=== PATIENT | male | born 1965 | race Caucasian/White ===

== ENCOUNTER 2024-07-27 09:48 | Inpatient (IN) | payer MEDICAID, OTHER ==
[~2024-07-27] VITALS: Ht 185.4 cm; Wt 95.0 kg
[2024-07-27 10:43] LABS: COVID AG,FIA SOURCE NASAL SWAB
[2024-07-27 10:46] LABS: BASOPHILS % (AUTO) 0.2 % (0.0-2.0); EOSINOPHILS % (AUTO) 0.4 % (1.0-6.0); HEMATOCRIT 33.5 % (41-53); LYMPHOCYTES # (AUTO) 0.5 K/uL (1.0-4.8); LYMPHOCYTES % (AUTO) 5.2 % (22.0-44.0); MEAN CORPUSCULAR HEMOGLOBIN 29.7 pg (26.0-34.0); MEAN CORPUSCULAR HGB CONC 32.9 G/dL (31.0-37.0); MEAN CORPUSCULAR VOLUME 90 fL (80-100); MONOCYTES # (AUTO) 0.7 K/uL (0.1-1.0); MONOCYTES % (AUTO) 6.7 % (2.0-9.0); NEUTROPHILS # (AUTO) 8.7 K/uL (1.8-7.7); PLATELET COUNT (AUTO) 104 K/uL (150-450); RED BLOOD CELL COUNT(AUTO) 3.72 MIL/uL (4.50-5.90); WHITE BLOOD COUNT (AUTO) 9.9 K/uL (4.5-11.0)
[2024-07-27 10:53] LABS: ANION GAP 24 mmol/L (8-16); CARBON DIOXIDE 14 mmol/L (22-29); CHLORIDE 96 mmol/L (98-107); CREATININE 19.86 mg/dL (0.60-1.30); GLOMERULAR FILTR. RATE CALC 2 mL/min (>60); GLUCOSE,RANDOM 106 mg/dL (70-110); SODIUM SERUM 134 mmol/L (136-145)
[2024-07-27 10:54] LABS: CALCIUM, TOTAL 9.2 mg/dL (8.8-10.5)
[2024-07-27 10:56] LABS: POTASSIUM 6.9 mmol/L (3.5-5.1)
[2024-07-27 10:58] LABS: NEUTROPHILS % (AUTO) 87.5 % (40.0-70.0)
[2024-07-27 11:02] LABS: INFLUENZA TYPE A NEGATIVE FOR TYPE A (NEGATIVE); INFLUENZA TYPE B NEGATIVE FOR TYPE B (NEGATIVE); SARS-COV2 (COVID) ANTIGEN,FIA Negative (Negative)
[2024-07-27 11:10] LABS: PROTHROMBIN TIME 11.5 SEC (9.4-11.6)
[2024-07-27 11:19] LABS: LACTIC ACID 1.7 mmol/L (0.4-2.0)
[2024-07-27 11:25] LABS: UREA NITROGEN, BLOOD 196 mg/dL (7-18)
[2024-07-27] MEDS: SODIUM ZIRCONIUM CYCLOSILICATE 10 GM POWDER PACKET PO ONE (11:26)
[2024-07-27] MEDS: DEXTROSE 50%-WATER 25 GM/50 ML SYRINGE IVP ONE (11:30)
[2024-07-27] MEDS: SODIUM CHLORIDE 0.9% 1,000 ML IV ONE (11:32)
[2024-07-27] MEDS: INSULIN REGULAR, HUMAN 100 UNITS/ML IVP ONE (11:32)
[2024-07-27 11:35] LABS: TROPONIN I-HIGH SENSITIVITY 288 ng/L (<76)
[2024-07-27] MEDS: CALCIUM CHLORIDE 100 MG/ML 10 ML SYRINGE IVP ONE ×2 (11:55→15:24)
[2024-07-27 12:06] LABS: GLUCOMETER DEV NAME(LOC) ER.7; GLUCOSE,POINT OF CARE 93 MG/DL (70-110)
[2024-07-27] MEDS ORDERED: AMIODARONE HCL 50 MG/ML 3 ML VIAL ONE (12:23)
[2024-07-27] MEDS ORDERED: PHENYLEPHRINE HCL IN 0.9% NACL 400 MCG/10 ML SYRINGE IVP ONE (12:37)
[2024-07-27 12:44] LABS: APPEARANCE,URINE HAZY (CLEAR); BILIRUBIN,URINE NEGATIVE (NEGATIVE); COLOR,URINE LIGHT YELLOW (YELLOW); GLUCOSE, URINE (UA) NEGATIVE (NEGATIVE); KETONES,URINE NEGATIVE (NEGATIVE); LEUKOCYTE ESTERASE ,URINE NEGATIVE (NEGATIVE); NITRATE,URINE NEGATIVE (NEGATIVE); OCCULT BLOOD,URINE MODERATE (NEGATIVE); PROTEIN,URINE 300-600,SEE CONFIRM mg/dL (NEGATIVE); SPECIFIC GRAVITIY, URINE 1.013 (1.003-1.030); UROBILINOGEN,URINE <=1.0 mg/dL (<=1.0)
[2024-07-27] MEDS ORDERED: NOREPINEPHRINE 8 MG/0.9 % NACL 250 ML IV PRN (12:45)
[2024-07-27] MEDS ORDERED: PHENYLEPHRINE 200 MG/D5%-WATER 250 ML IV PRN (12:45)
[2024-07-27] MEDS ORDERED: AMIODARONE HCL 360 MG in DEXTROSE 5%-WATER 242.8 ML IV ONE (12:45)
[2024-07-27] MEDS: SODIUM BICARBONATE [ADULT] 8.4% 50 MEQ/50 ML SYRINGE IVP ONE ×2 (12:59→15:06)
[2024-07-27] MEDS: AMIODARONE HCL 360 MG in DEXTROSE 5%-WATER 242.8 ML IV ONE (13:00)
[2024-07-27 13:05] LABS: BACTERIA,URINE Many /HPF (None Seen); SULFOSALICYLIC ACID,URINE 3+ (Negative)
[2024-07-27] MEDS: PHENYLEPHRINE 200 MG/D5%-WATER 250 ML IV PRN (13:06)
[2024-07-27 13:09] LABS: CALCIUM, TOTAL 11.4 mg/dL (8.8-10.5); CREATININE 19.35 mg/dL (0.60-1.30); MAGNESIUM 2.7 mg/dL (1.80-2.40)
[2024-07-27] MEDS ORDERED: MIDAZOLAM HCL 2 MG/2 ML VIAL ONE (13:12)
[2024-07-27 13:15] LABS: POTASSIUM 6.2 mmol/L (3.5-5.1)
[2024-07-27] MEDS: AMIODARONE HCL 150 MG in DEXTROSE 5%-WATER 97 ML IV ONE (13:15)
[2024-07-27] MEDS: LORazepam 2 MG/ML VIAL IVP ONE (15:05)
[2024-07-27] MEDS: SODIUM BICARBONATE 150 MEQ in DEXTROSE 5%-WATER 850 ML IV ONE (15:06)
[2024-07-27] MEDS: PIPERACILLIN/TAZO 3.375 GM/D5W 50 ML IV ONE (15:24)
[2024-07-27 15:54] LABS: TROPONIN I-HIGH SENSITIVITY 250 ng/L (<76)
[2024-07-27 16:30] VITALS: BP 134/82; PULSE 90; RESP 17; TEMP 98.1; O2SAT 96
[2024-07-27 16:45] VITALS: BP 120/89; PULSE 97; RESP 16; O2SAT 97
[2024-07-27] MEDS: CALCITONIN,SALMON,SYNTHETIC 200 UNITS/ML 2 ML VIAL SQ ONE (17:14)
[2024-07-27 17:15] VITALS: BP 98/46; PULSE 101; RESP 16; O2SAT 97
[2024-07-27 17:45] VITALS: BP 108/55; PULSE 100; RESP 16; O2SAT 97
[2024-07-27 18:15] VITALS: BP 103/56; PULSE 99; RESP 16; O2SAT 97
[2024-07-27 18:45] VITALS: BP 100/58; PULSE 98; RESP 17; O2SAT 96
[2024-07-27] MEDS ORDERED: AMIODARONE HCL 540 MG in DEXTROSE 5%-WATER 239.2 ML IV ONE (18:45)
[2024-07-27] MEDS: AMIODARONE HCL 540 MG in DEXTROSE 5%-WATER 239.2 ML IV ONE (19:19)
[2024-07-27] MEDS: ZOLPIDEM TARTRATE 5 MG TABLET PO ONE (23:41)
[2024-07-27] MEDS ORDERED: ROSU40TA88 PO (23:50)
[2024-07-27] MEDS ORDERED: AMLO5TAB66 PO (23:50)
[2024-07-27] MEDS ORDERED: ATOR40TA71 PO (23:50)
[2024-07-27] MEDS ORDERED: DEXA4 PO (23:50)
[2024-07-27] MEDS ORDERED: EZET10TA57 PO (23:50)
[2024-07-27] MEDS ORDERED: CHLO25TA3 PO (23:50)
[2024-07-27] MEDS ORDERED: [UNRECOGNIZED DRUG - CODE] SQ (23:50)
[2024-07-27] MEDS ORDERED: OMEP20TA20 PO (23:50)
[2024-07-27] MEDS ORDERED: ASPI-1444 PO (23:50)
[2024-07-27] MEDS ORDERED: CLOP75TA32 PO (23:50)
[2024-07-28] VITALS (9 sets, daily range): BP systolic 89–131; BP diastolic 41–77; PULSE 75–85; RESP 10–28; TEMP 98.4–99.1; O2SAT 95–97
[2024-07-28] MEDS: PHENYLEPHRINE 200 MG/D5%-WATER 250 ML IV PRN (02:14)
[2024-07-28] MEDS ORDERED: BISACODYL 10 MG RECTAL RECTAL SUPPOSITORY PR PRN (05:15)
[2024-07-28] MEDS ORDERED: ONDANSETRON HCL 4 MG/2 ML VIAL IVP PRN (05:15)
[2024-07-28] MEDS ORDERED: MAGNESIUM HYDROXIDE SUSPENSION 30 ML UDCUP PO PRN (05:15)
[2024-07-28] MEDS ORDERED: OxyCODONE HCL/ACETAMINOPHEN 5-325 MG TABLET PO PRN (05:15)
[2024-07-28] MEDS ORDERED: IPRATROPIUM BROMIDE 0.5 MG/2.5 ML NEB SOLUTION NEB PRN (05:15)
[2024-07-28] MEDS ORDERED: ALBUTEROL SULFATE 2.5 MG/0.5 ML NEB SOLUTION NEB PRN (05:15)
[2024-07-28] MEDS ORDERED: ACETAMINOPHEN 325 MG TABLET PO PRN (05:15)
[2024-07-28] MEDS ORDERED: MORPHINE SULFATE 2 MG/ML SYRINGE IVP PRN (05:15)
[2024-07-28 06:17] LABS: CALCIUM, TOTAL 8.7 mg/dL (8.8-10.5); CREATININE 13.37 mg/dL (0.60-1.30); MAGNESIUM 2.2 mg/dL (1.80-2.40); POTASSIUM 5.3 mmol/L (3.5-5.1)
[2024-07-28] MEDS: HEPARIN SODIUM,PORCINE 5,000 UNITS/ML VIAL SQ SCH (08:00)
[2024-07-28] MEDS: DOCUSATE SODIUM 100 MG/10 ML LIQUID UDCUP PO SCH (08:43)
[2024-07-28] MEDS: EZETIMIBE 10 MG TABLET PO SCH (08:43)
[2024-07-28] MEDS: PANTOPRAZOLE SODIUM 40 MG/VIAL IVP SCH (08:47)
[2024-07-28] MEDS: CLOPIDOGREL BISULFATE 75 MG TABLET PO SCH (08:47)
[2024-07-28] MEDS: ASPIRIN 81 MG DR TABLET PO SCH (08:48)
[2024-07-28] MEDS: DEXTROSE 5%-0.9% SODIUM CHL 1,000 ML IV SCH (08:52)
[2024-07-28] MEDS ORDERED: HEPARIN SODIUM,PORCINE 1,000 UNITS/ML VIAL IVP ONE ×2 (12:00→16:49)
[2024-07-28] MEDS ORDERED: AMIODARONE HCL 750 MG in DEXTROSE 5%-WATER 485 ML IV SCH (12:45)
[2024-07-28] MEDS: AMIODARONE HCL 750 MG in DEXTROSE 5%-WATER 485 ML IV SCH (13:08)
[2024-07-28] MEDS: HEPARIN SODIUM,PORCINE 1,000 UNITS/ML VIAL IVCATH ONE ×2 (14:19)
[2024-07-28] MEDS ORDERED: ALBUMIN HUMAN 25%-12.5GM/50ML IV BOTTLE IV ONE (16:49)
[2024-07-28] MEDS: ATORVASTATIN CALCIUM 40 MG TABLET PO SCH (21:26)
[2024-07-28] MEDS: ETHYL ALCOHOL 62% ANTISEPTIC NASAL SANITIZER 0.6 ML AMPUL NASAL SCH (23:39)
[2024-07-29] VITALS: BP 104/53; PULSE 80; RESP 16; TEMP 99; O2SAT 96
[2024-07-29 04:00] VITALS: BP 93/46; PULSE 77; RESP 16; TEMP 98.8; O2SAT 96
[2024-07-29 05:41] LABS: BASOPHILS % (AUTO) 0.1 % (0.0-2.0); EOSINOPHILS % (AUTO) 1.2 % (1.0-6.0); HEMATOCRIT 26.2 % (41-53); HEMOGLOBIN 8.8 g/dL (13.5-17.5); LYMPHOCYTES # (AUTO) 0.7 K/uL (1.0-4.8); LYMPHOCYTES % (AUTO) 6.5 % (22.0-44.0); MEAN CORPUSCULAR HEMOGLOBIN 30.2 pg (26.0-34.0); MEAN CORPUSCULAR HGB CONC 33.7 G/dL (31.0-37.0); MEAN CORPUSCULAR VOLUME 90 fL (80-100); MONOCYTES # (AUTO) 1.1 K/uL (0.1-1.0); NEUTROPHILS # (AUTO) 9.2 K/uL (1.8-7.7); NEUTROPHILS % (AUTO) 82.2 % (40.0-70.0); PLATELET COUNT (AUTO) 83 K/uL (150-450); RED BLOOD CELL COUNT(AUTO) 2.92 MIL/uL (4.50-5.90); RED CELL DISTRIBUTION WIDTH 14.8 % (11.5-14.5); WHITE BLOOD COUNT (AUTO) 11.2 K/uL (4.5-11.0)
[2024-07-29 06:00] LABS: CALCIUM, TOTAL 7.7 mg/dL (8.8-10.5); CREATININE 7.98 mg/dL (0.60-1.30); MAGNESIUM 2.1 mg/dL (1.80-2.40); PHOSPHORUS 6.2 mg/dL (2.5-4.9); POTASSIUM 4.1 mmol/L (3.5-5.1)
[2024-07-29 08:00] VITALS: BP 95/63; PULSE 78; PULSE 86; RESP 10; TEMP 98.3; O2SAT 99
[2024-07-29 12:00] VITALS: BP 82/60; PULSE 77; TEMP 98.6; O2SAT 97
[2024-07-29 16:00] VITALS: BP 109/59; PULSE 81; RESP 14; TEMP 98.4; O2SAT 96
[2024-07-29 17:25] LABS: CREATININE 8.27 mg/dL (0.60-1.30)
[2024-07-29 20:00] VITALS: BP 102/52; PULSE 81; RESP 16; TEMP 98.6; O2SAT 99
[2024-07-29] MEDS: PANTOPRAZOLE SODIUM 40 MG/VIAL IVP SCH (21:03)
[2024-07-30] VITALS (15 sets, daily range): BP systolic 90–104; BP diastolic 44–65; PULSE 78–94; RESP 12–19; TEMP 97.9–98.6; O2SAT 94–99
[2024-07-30 05:32] LABS: BASOPHILS % (AUTO) 0.2 % (0.0-2.0); EOSINOPHILS % (AUTO) 2.4 % (1.0-6.0); HEMATOCRIT 27.1 % (41-53); HEMOGLOBIN 8.9 g/dL (13.5-17.5); LYMPHOCYTES # (AUTO) 0.8 K/uL (1.0-4.8); LYMPHOCYTES % (AUTO) 5.8 % (22.0-44.0); MEAN CORPUSCULAR HEMOGLOBIN 29.8 pg (26.0-34.0); MEAN CORPUSCULAR HGB CONC 32.8 G/dL (31.0-37.0); MEAN CORPUSCULAR VOLUME 91 fL (80-100); MONOCYTES # (AUTO) 1.2 K/uL (0.1-1.0); NEUTROPHILS # (AUTO) 12.3 K/uL (1.8-7.7); NEUTROPHILS % (AUTO) 83.6 % (40.0-70.0); PLATELET COUNT (AUTO) 91 K/uL (150-450); RED BLOOD CELL COUNT(AUTO) 2.99 MIL/uL (4.50-5.90); RED CELL DISTRIBUTION WIDTH 14.5 % (11.5-14.5); WHITE BLOOD COUNT (AUTO) 14.7 K/uL (4.5-11.0)
[2024-07-30 05:48] LABS: ALBUMIN 2.1 g/dL (3.4-5.0); BILIRUBIN,TOTAL 0.9 mg/dL (0.1-1.0); CALCIUM, TOTAL 7.7 mg/dL (8.8-10.5); CREATININE 8.73 mg/dL (0.60-1.30); MAGNESIUM 1.9 mg/dL (1.80-2.40); PHOSPHORUS 6.2 mg/dL (2.5-4.9); POTASSIUM 3.6 mmol/L (3.5-5.1); TOTAL PROTEIN, SERUM 4.8 g/dL (6.4-8.2)
[2024-07-30 05:49] LABS: CHOL/HDL RATIO 1.9 (4.2-7.3)
[2024-07-30] MEDS ORDERED: HEPARIN SODIUM,PORCINE 1,000 UNITS/ML VIAL IVP ONE (11:38)
[2024-07-30] MEDS ORDERED: SODIUM CHLORIDE 0.9% 1,000 ML ONE ×2 (15:59)
[2024-07-30] MEDS: MIDODRINE HCL 5 MG TABLET PO SCH (16:02)
[2024-07-30] MEDS: ALBUMIN HUMAN 5%-12.5GM/250ML 250 ML IV ONE (16:02)
[2024-07-30] MEDS ORDERED: LOSA100T59 PO (19:47)
[2024-07-30] MEDS ORDERED: CYCL50CA3 PO (19:47)
[2024-07-30] MEDS: HEPARIN SODIUM,PORCINE 1,000 UNITS/ML VIAL IVCATH ONE ×2 (20:15)
[2024-07-30] MEDS: ZOLPIDEM TARTRATE 5 MG TABLET PO PRN (20:34)
[2024-07-31] VITALS (9 sets, daily range): BP systolic 92–107; BP diastolic 48–65; PULSE 84–103; RESP 14–19; TEMP 98.3–99; O2SAT 93–99
[2024-07-31 05:22] LABS: BASOPHILS % (AUTO) 0.2 % (0.0-2.0); EOSINOPHILS % (AUTO) 2.2 % (1.0-6.0); HEMATOCRIT 27.9 % (41-53); HEMOGLOBIN 9.1 g/dL (13.5-17.5); LYMPHOCYTES # (AUTO) 1.3 K/uL (1.0-4.8); LYMPHOCYTES % (AUTO) 8.3 % (22.0-44.0); MEAN CORPUSCULAR HEMOGLOBIN 29.6 pg (26.0-34.0); MEAN CORPUSCULAR HGB CONC 32.7 G/dL (31.0-37.0); MEAN CORPUSCULAR VOLUME 90 fL (80-100); MONOCYTES # (AUTO) 1.2 K/uL (0.1-1.0); MONOCYTES % (AUTO) 7.8 % (2.0-9.0); NEUTROPHILS # (AUTO) 12.3 K/uL (1.8-7.7); NEUTROPHILS % (AUTO) 81.5 % (40.0-70.0); PLATELET COUNT (AUTO) 130 K/uL (150-450); RED BLOOD CELL COUNT(AUTO) 3.09 MIL/uL (4.50-5.90); RED CELL DISTRIBUTION WIDTH 14.7 % (11.5-14.5); WHITE BLOOD COUNT (AUTO) 15.2 K/uL (4.5-11.0)
[2024-07-31 05:36] LABS: CREATININE 5.21 mg/dL (0.60-1.30); MAGNESIUM 1.8 mg/dL (1.80-2.40); PHOSPHORUS 4.7 mg/dL (2.5-4.9); POTASSIUM 3.3 mmol/L (3.5-5.1)
[2024-07-31] MEDS: MIDODRINE HCL 5 MG TABLET PO SCH (15:53)
[2024-08-01] VITALS (12 sets, daily range): BP systolic 97–126; BP diastolic 48–88; PULSE 55–95; RESP 17–19; TEMP 97.9–98.4; O2SAT 95–98
[2024-08-01 07:30] LABS: BASOPHILS % (AUTO) 0.6 % (0.0-2.0); EOSINOPHILS % (AUTO) 2.9 % (1.0-6.0); HEMOGLOBIN 8.5 g/dL (13.5-17.5); LYMPHOCYTES # (AUTO) 0.9 K/uL (1.0-4.8); LYMPHOCYTES % (AUTO) 7.5 % (22.0-44.0); MEAN CORPUSCULAR HEMOGLOBIN 29.6 pg (26.0-34.0); MEAN CORPUSCULAR HGB CONC 32.6 G/dL (31.0-37.0); MEAN CORPUSCULAR VOLUME 91 fL (80-100); MONOCYTES % (AUTO) 8.4 % (2.0-9.0); NEUTROPHILS # (AUTO) 9.3 K/uL (1.8-7.7); NEUTROPHILS % (AUTO) 80.6 % (40.0-70.0); PLATELET COUNT (AUTO) 151 K/uL (150-450); RED BLOOD CELL COUNT(AUTO) 2.86 MIL/uL (4.50-5.90); RED CELL DISTRIBUTION WIDTH 14.4 % (11.5-14.5); WHITE BLOOD COUNT (AUTO) 11.6 K/uL (4.5-11.0)
[2024-08-01 07:39] LABS: CALCIUM, TOTAL 8.2 mg/dL (8.8-10.5); CREATININE 6.05 mg/dL (0.60-1.30); POTASSIUM 3.1 mmol/L (3.5-5.1)
[2024-08-01 08:06] LABS: GLUCOMETER DEV NAME(LOC) 5N.2C; GLUCOSE,POINT OF CARE 177 MG/DL (70-110)
[2024-08-01] MEDS: POTASSIUM CHLORIDE 20 MEQ ER TABLET PO ONE ×2 (09:48→12:10)
[2024-08-01] MEDS: METOPROLOL SUCCINATE 25 MG ER TABLET PO SCH (12:12)
[2024-08-01] MEDS: POTASSIUM CHLORIDE 10 MEQ ER TABLET PO ONE (12:16)
[2024-08-01 17:14] LABS: POTASSIUM 3.7 mmol/L (3.5-5.1)
[2024-08-02] VITALS (21 sets, daily range): BP systolic 88–121; BP diastolic 41–81; PULSE 61–97; RESP 17–18; TEMP 97.5–98.5; O2SAT 97–98
[2024-08-02] MEDS: HEPARIN SODIUM,PORCINE 1,000 UNITS/ML VIAL IVCATH ONE ×2 (15:38)
[2024-08-03 00:35] VITALS: BP 100/55; PULSE 84; RESP 18; TEMP 98.3; O2SAT 97
[2024-08-03 04:17] VITALS: BP 96/54; PULSE 85; RESP 18; TEMP 97.9; O2SAT 96
[2024-08-03 08:00] VITALS: BP 101/61; PULSE 98; RESP 18; TEMP 97.9; O2SAT 96
[2024-08-03] MEDS ORDERED: SODIUM CHLORIDE 0.9% 1,000 ML ONE (09:24)
[2024-08-03 12:00] VITALS: BP 99/65; PULSE 86; RESP 18; TEMP 98.1; O2SAT 99
[2024-08-03] MEDS ORDERED: LIDOCAINE/PF 2% 5 ML VIAL IM ONE (12:00)
[2024-08-03] MEDS ORDERED: PROPOFOL 1% 20 ML VIAL IVP ONE (12:00)
[2024-08-03 12:07] LABS: BASOPHILS % (AUTO) 0.8 % (0.0-2.0); HEMATOCRIT 26.9 % (41-53); HEMOGLOBIN 8.8 g/dL (13.5-17.5); LYMPHOCYTES # (AUTO) 0.7 K/uL (1.0-4.8); LYMPHOCYTES % (AUTO) 8.3 % (22.0-44.0); MEAN CORPUSCULAR HEMOGLOBIN 29.8 pg (26.0-34.0); MEAN CORPUSCULAR HGB CONC 32.7 G/dL (31.0-37.0); MEAN CORPUSCULAR VOLUME 91 fL (80-100); MONOCYTES # (AUTO) 0.8 K/uL (0.1-1.0); MONOCYTES % (AUTO) 8.5 % (2.0-9.0); NEUTROPHILS # (AUTO) 7.2 K/uL (1.8-7.7); NEUTROPHILS % (AUTO) 80.4 % (40.0-70.0); PLATELET COUNT (AUTO) 201 K/uL (150-450); RED BLOOD CELL COUNT(AUTO) 2.95 MIL/uL (4.50-5.90); RED CELL DISTRIBUTION WIDTH 15.2 % (11.5-14.5)
[2024-08-03 12:25] LABS: CALCIUM, TOTAL 8.3 mg/dL (8.8-10.5); CREATININE 4.76 mg/dL (0.60-1.30); POTASSIUM 3.5 mmol/L (3.5-5.1)
[2024-08-03] MEDS ORDERED: HEPARIN SODIUM,PORCINE 1,000 UNITS/ML VIAL IVP ONE (12:30)
[2024-08-03] MEDS: SODIUM CHLORIDE 0.9% 1,000 ML IV ONE (14:08)
[2024-08-03 16:00] VITALS: BP 101/64; PULSE 88; RESP 18; TEMP 98.6; O2SAT 98
[2024-08-03 20:00] VITALS: BP 98/50; PULSE 85; RESP 17; TEMP 98; O2SAT 97
[2024-08-04] VITALS (8 sets, daily range): BP systolic 100–119; BP diastolic 57–79; PULSE 81–88; RESP 15–20; TEMP 97.9–98.2; O2SAT 96–99
[2024-08-04] MEDS ORDERED: SODIUM BICARBONATE 50 MEQ/50 ML VIAL ONE (08:06)
[2024-08-04] MEDS: EPOETIN ALFA 10,000 UNITS/ML 2 ML VIAL SQ SCH (08:25)
[2024-08-04] MEDS ORDERED: FentaNYL CITRATE PF 100 MCG/2 ML VIAL ONE (08:41)
[2024-08-04] MEDS ORDERED: MIDAZOLAM HCL 2 MG/2 ML VIAL ONE (08:42)
[2024-08-04] MEDS ORDERED: 0.9% SODIUM CHLORIDE 10 ML SYRINGE IVP ONE (08:43)
[2024-08-04] MEDS ORDERED: HEPARIN SODIUM,PORCINE 1,000 UNITS/ML 10 ML VIAL IARTER ONE (09:15)
[2024-08-04] MEDS: HEPARIN SODIUM,PORCINE 1,000 UNITS/ML 10 ML VIAL IVP ONE (09:31)
[2024-08-04] MEDS: LIDOCAINE 1% 30 ML/SOD BICARB 8.4% 4 ML SQ ONE (09:32)
[2024-08-04] MEDS: FentaNYL CITRATE PF 100 MCG/2 ML VIAL IVP ONE (09:33)
[2024-08-04] MEDS: MIDAZOLAM HCL 2 MG/2 ML VIAL IVP ONE (09:33)
[2024-08-04] MEDS: SODIUM CHLORIDE 0.9% 500 ML IV ONE (09:34)
[2024-08-04] MEDS: POTASSIUM CHLORIDE 10 MEQ ER TABLET PO ONE (18:32)
[2024-08-05] VITALS (14 sets, daily range): BP systolic 96–122; BP diastolic 57–81; PULSE 79–94; RESP 16–19; TEMP 97.2–98.5; O2SAT 96–99
[2024-08-05] MEDS ORDERED: SODIUM CHLORIDE 0.9% 1,000 ML ONE (06:19)
[2024-08-05 10:55] LABS: CALCIUM, TOTAL 8.1 mg/dL (8.8-10.5); CREATININE 2.2 mg/dL (0.60-1.30); POTASSIUM 3.2 mmol/L (3.5-5.1)
[2024-08-05 10:59] LABS: BASOPHILS % (AUTO) 1.2 % (0.0-2.0); EOSINOPHILS % (AUTO) 1.8 % (1.0-6.0); HEMATOCRIT 25.8 % (41-53); HEMOGLOBIN 8.5 g/dL (13.5-17.5); LYMPHOCYTES # (AUTO) 0.7 K/uL (1.0-4.8); LYMPHOCYTES % (AUTO) 7.8 % (22.0-44.0); MEAN CORPUSCULAR HEMOGLOBIN 29.9 pg (26.0-34.0); MEAN CORPUSCULAR HGB CONC 32.8 G/dL (31.0-37.0); MEAN CORPUSCULAR VOLUME 91 fL (80-100); MONOCYTES # (AUTO) 0.7 K/uL (0.1-1.0); MONOCYTES % (AUTO) 8.4 % (2.0-9.0); NEUTROPHILS # (AUTO) 6.8 K/uL (1.8-7.7); NEUTROPHILS % (AUTO) 80.8 % (40.0-70.0); PLATELET COUNT (AUTO) 183 K/uL (150-450); RED BLOOD CELL COUNT(AUTO) 2.83 MIL/uL (4.50-5.90); RED CELL DISTRIBUTION WIDTH 14.9 % (11.5-14.5); WHITE BLOOD COUNT (AUTO) 8.4 K/uL (4.5-11.0)
[2024-08-05] MEDS ORDERED: HEPARIN SODIUM,PORCINE 1,000 UNITS/ML VIAL ONE (11:59)
[2024-08-05] MEDS: HEPARIN SODIUM,PORCINE 1,000 UNITS/ML VIAL IVCATH ONE ×2 (12:13→12:14)
[2024-08-05] MEDS ORDERED: POTASSIUM CHLORIDE 20 MEQ ER TABLET PO ONE (18:30)
[2024-08-05] MEDS: POTASSIUM CHLORIDE 20 MEQ ER TABLET PO ONE (18:47)
[2024-08-05 20:45] LABS: CREATININE 3.5 mg/dL (0.60-1.30)
[2024-08-06 01:23] VITALS: BP 108/60; PULSE 90; RESP 18; TEMP 98; O2SAT 97
[2024-08-06 06:53] VITALS: BP 114/65; PULSE 91; RESP 18; TEMP 98.2; O2SAT 96
[2024-08-06 07:06] LABS: CALCIUM, TOTAL 8.3 mg/dL (8.8-10.5); CREATININE 3.88 mg/dL (0.60-1.30); MAGNESIUM 1.8 mg/dL (1.80-2.40); PHOSPHORUS 3.5 mg/dL (2.5-4.9); POTASSIUM 4.1 mmol/L (3.5-5.1)
[2024-08-06 08:43] VITALS: BP 109/75; PULSE 84; RESP 18; TEMP 97.7; O2SAT 96
[2024-08-06 12:10] VITALS: BP 111/66; PULSE 88; RESP 17; TEMP 98.4; O2SAT 98
[2024-08-06 16:01] VITALS: BP 102/63; PULSE 77; RESP 17; TEMP 98.1; O2SAT 98
[2024-08-06 17:58] LABS: CREATININE 4.07 mg/dL (0.60-1.30)
[2024-08-06 20:00] VITALS: BP 103/61; PULSE 81; RESP 18; TEMP 98.4; O2SAT 97
[2024-08-07] VITALS (14 sets, daily range): BP systolic 95–124; BP diastolic 55–83; PULSE 72–91; RESP 18–19; TEMP 97.6–98.6; O2SAT 97–98
[2024-08-07 06:56] LABS: CALCIUM, TOTAL 8.6 mg/dL (8.8-10.5); CREATININE 4.36 mg/dL (0.60-1.30); PHOSPHORUS 3.9 mg/dL (2.5-4.9); POTASSIUM 3.8 mmol/L (3.5-5.1)
[2024-08-07] MEDS ORDERED: HEPARIN SODIUM,PORCINE 1,000 UNITS/ML VIAL ONE (12:47)
[2024-08-08] VITALS (7 sets, daily range): BP systolic 94–107; BP diastolic 58–65; PULSE 82–95; RESP 14–18; TEMP 97.6–98.4; O2SAT 96–99
[2024-08-08 11:08] LABS: EOSINOPHILS % (AUTO) 2.2 % (1.0-6.0); HEMATOCRIT 28.4 % (41-53); HEMOGLOBIN 9.3 g/dL (13.5-17.5); LYMPHOCYTES # (AUTO) 0.8 K/uL (1.0-4.8); LYMPHOCYTES % (AUTO) 11.3 % (22.0-44.0); MEAN CORPUSCULAR HEMOGLOBIN 30.4 pg (26.0-34.0); MEAN CORPUSCULAR HGB CONC 32.8 G/dL (31.0-37.0); MEAN CORPUSCULAR VOLUME 93 fL (80-100); MONOCYTES # (AUTO) 0.9 K/uL (0.1-1.0); MONOCYTES % (AUTO) 13.6 % (2.0-9.0); NEUTROPHILS % (AUTO) 71.9 % (40.0-70.0); PLATELET COUNT (AUTO) 204 K/uL (150-450); RED BLOOD CELL COUNT(AUTO) 3.06 MIL/uL (4.50-5.90); RED CELL DISTRIBUTION WIDTH 15.6 % (11.5-14.5); WHITE BLOOD COUNT (AUTO) 6.9 K/uL (4.5-11.0)
[2024-08-08 11:17] LABS: CALCIUM, TOTAL 8.4 mg/dL (8.8-10.5); CREATININE 2.97 mg/dL (0.60-1.30); MAGNESIUM 1.9 mg/dL (1.80-2.40); PHOSPHORUS 2.9 mg/dL (2.5-4.9); POTASSIUM 3.4 mmol/L (3.5-5.1)
[2024-08-09] VITALS (9 sets, daily range): BP systolic 104–119; BP diastolic 60–71; PULSE 83–98; RESP 17–19; TEMP 98.1–98.7; O2SAT 96–99
[2024-08-09 07:48] LABS: CALCIUM, TOTAL 8.4 mg/dL (8.8-10.5); CREATININE 3.51 mg/dL (0.60-1.30); MAGNESIUM 1.9 mg/dL (1.80-2.40); PHOSPHORUS 3.3 mg/dL (2.5-4.9); POTASSIUM 3.4 mmol/L (3.5-5.1)
[2024-08-09 17:35] LABS: CREATININE 3.67 mg/dL (0.60-1.30)
[2024-08-10] VITALS (16 sets, daily range): BP systolic 103–148; BP diastolic 55–97; PULSE 65–93; RESP 18; TEMP 97.5–98.3; O2SAT 94–98
[2024-08-10] MEDS ORDERED: SODIUM CHLORIDE 0.9% 1,000 ML ONE (06:02)
[2024-08-10 07:17] LABS: CALCIUM, TOTAL 8.7 mg/dL (8.8-10.5); CREATININE 3.71 mg/dL (0.60-1.30); POTASSIUM 3.7 mmol/L (3.5-5.1)
[2024-08-10] MEDS ORDERED: HEPARIN SODIUM,PORCINE 1,000 UNITS/ML VIAL ONE (12:00)
== END 2024-08-10 14:00 | disposition home or self-care (01) | DRG 469 ==
LOC: EMS 09:58 → EDH 23:49 → ICU 07-28 20:55 → 5N 07-31 18:15
PROVIDERS: ADMIT Hospitalist; ATTEND Hospitalist
PROC: 5A1D70Z Performance of Urinary Filtration, Intermittent, Less than 6 Hours Per Day (ICD-10-PCS; 2024-07-27)
PROC: 5A1D70Z Performance of Urinary Filtration, Intermittent, Less than 6 Hours Per Day (ICD-10-PCS; 2024-07-28)
PROC: 5A1D70Z Performance of Urinary Filtration, Intermittent, Less than 6 Hours Per Day (ICD-10-PCS; 2024-07-30)
PROC: 5A1D70Z Performance of Urinary Filtration, Intermittent, Less than 6 Hours Per Day (ICD-10-PCS; 2024-08-02)
PROC: 0DB98ZX Excision of Duodenum, Via Natural or Artificial Opening Endoscopic, Diagnostic (ICD-10-PCS; 2024-08-03)
PROC: 0JH63XZ Insertion of Tunneled Vascular Access Device into Chest Subcutaneous Tissue and Fascia, Percutaneous Approach (ICD-10-PCS; principal; 2024-08-04)
PROC: 02HV33Z Insertion of Infusion Device into Superior Vena Cava, Percutaneous Approach (ICD-10-PCS; 2024-08-04)
PROC: B548ZZA Ultrasonography of Superior Vena Cava, Guidance (ICD-10-PCS; 2024-08-04)
PROC: B5181ZA Fluoroscopy of Superior Vena Cava using Low Osmolar Contrast, Guidance (ICD-10-PCS; 2024-08-04)
PROC: 5A1D70Z Performance of Urinary Filtration, Intermittent, Less than 6 Hours Per Day (ICD-10-PCS; 2024-08-05)
PROC: 5A1D70Z Performance of Urinary Filtration, Intermittent, Less than 6 Hours Per Day (ICD-10-PCS; 2024-08-07)
PROC: 5A1D70Z Performance of Urinary Filtration, Intermittent, Less than 6 Hours Per Day (ICD-10-PCS; 2024-08-10)
DX: N17.9 Acute kidney failure, unspecified (principal); R57.9 Shock, unspecified; D69.6 Thrombocytopenia, unspecified; E85.0 Non-neuropathic heredofamilial amyloidosis; D63.1 Anemia in chronic kidney disease; D62 Acute posthemorrhagic anemia; I13.2 Hypertensive heart and chronic kidney disease with heart failure and with stage 5 chronic kidney disease, or end stage renal disease; E87.20 Acidosis, unspecified; N18.6 End stage renal disease; I47.20 Ventricular tachycardia, unspecified; E87.5 Hyperkalemia; Z20.822 Contact with and (suspected) exposure to COVID-19; E83.52 Hypercalcemia; E87.6 Hypokalemia; R31.9 Hematuria, unspecified; N08 Glomerular disorders in diseases classified elsewhere; Z99.2 Dependence on renal dialysis; K44.9 Diaphragmatic hernia without obstruction or gangrene; I50.32 Chronic diastolic (congestive) heart failure; K20.91 Esophagitis, unspecified with bleeding; K82.8 Other specified diseases of gallbladder; I49.3 Ventricular premature depolarization; K31.7 Polyp of stomach and duodenum; Z80.8 Family history of malignant neoplasm of other organs or systems; Z82.49 Family history of ischemic heart disease and other diseases of the circulatory system; Z86.73 Personal history of transient ischemic attack (TIA), and cerebral infarction without residual deficits; Z87.891 Personal history of nicotine dependence; Z90.49 Acquired absence of other specified parts of digestive tract
CPT/HCPCS: 36561; 51702; 71045; 71250; 72192; 74150; 76000; 76705; 76770; 80048; 80053; 80061; 81001; 81002; 82271; 82565; 82962; 83605; 83735; 84100; 84132; 84145; 84295; 84484; 84520; 85025; 85610; 86706; 87040; 87081; 87086; 87340; 87635; 87804; 88305; 89055; 90935; 93005; 93306; 97116; 97162; 97166; 99291; J0282; J0630; J0885; J1644; J1815; J2060; J2250; J2370; J2470; J2543; J2704; J3010; J3490; J7030; J7042; J7060; P9041; P9047; 36415-L1; 36415-TC